=== PATIENT | female | born 1965 | race Caucasian/White ===

== ENCOUNTER → 2023-04-02 | Outpatient (REF) ==
[2023-04-02 13:36] LABS: RSV AMPLIFICATION NEGATIVE (NEGATIVE)
== END ==
LOC: M EMP 10:45
PROVIDERS: ATTEND Family Medicine
DX: Z20.828 Contact with and (suspected) exposure to other viral communicable diseases (principal)

== ENCOUNTER 2023-04-05 07:57 | Emergency (ER) | payer BC ==
[~2023-04-05] VITALS: Ht 157.5 cm; Wt 60.3 kg
[2023-04-05 07:58] VITALS: TEMP 98.3
[2023-04-05] MEDS ORDERED: ESTR1TAB PO (08:08)
[2023-04-05] MEDS ORDERED: PROG1CAP8 PO (08:08)
[2023-04-05] MEDS ORDERED: ACETAMINOPHEN 500 MG TAB PO ONE (08:25)
[2023-04-05 09:10] VITALS: BP 131/75; O2SAT 98
== END 2023-04-05 09:13 | disposition home or self-care (01) ==
LOC: M ED 07:57
DX: J02.9 Acute pharyngitis, unspecified (principal); U07.1 COVID-19